=== PATIENT | female | born 1965 | race Two or more races ===

== ENCOUNTER 2021-11-14 10:05 | Emergency (ER) | payer OTHER ==
[2021-11-14] MEDS ORDERED: ACETAMINOPHEN 500 MG TABLET (FP) PO ONE (10:40)
[2021-11-14] MEDS ORDERED: ACETAMINOPHEN 500 MG TABLET (FP) ONE (11:05)
[2021-11-14 11:13] VITALS: BP 152/67; PULSE 94; TEMP 100.4; BMI 33.7
[2021-11-14 11:19] LABS: HEMATOCRIT 37.5 % (32.4-45.2); HEMOGLOBIN 13.1 G/dL (10.7-15.3); MCH 30.3 pg (25.7-33.7); MEAN CELL VOLUME 86.8 fl (80-96); MEAN PLT VOLUME 9.8 fl (7.5-11.1); PLATELET COUNT 237.7 10^3/uL (134-434); RBC 4.32 10^6/uL (3.60-5.2); RDW 14.6 % (11.6-15.6); WHITE BLOOD COUNT 10.4 10^3/uL (4.0-10.8)
[2021-11-14 11:27] LABS: BILIRUBIN,TOTAL 1.7 mg/dl (0.2-1); CALCIUM 9.5 mg/dl (8.5-10); CREATININE 0.9 mg/dl (0.55-1.3); TOT PROT 7.4 g/dl (6.4-8.2)
[2021-11-14 11:30] LABS: EPITHELIAL CELLS FEW /hpf
[2021-11-14] MEDS ORDERED: CEFTRIAXONE 1 GM in DEXTROSE 5%-WATER - 100 ML IVPB ONE (11:36)
[2021-11-14] MEDS ORDERED: cefTRIAXone SODIUM 1 GM VIAL ONE (11:46)
== END 2021-11-14 12:49 | disposition home or self-care (01) ==
LOC: FER 10:05
DX: N39.0 Urinary tract infection, site not specified (principal)
CPT/HCPCS: 0241U-QW; 36415; 80053; 81003; 81015; 85025; 87086; 87186; 99284-25